=== PATIENT | male | born 1935 | race Caucasian/White ===

== ENCOUNTER 2017-11-12 16:58 | Emergency (ER) | payer BC ==
--- NOTE | 2017-11-12 17:07 | PDOC ---
History of Present Illness - General Chief Complaint: Pain Stated Complaint: LEFT KNEE PAIN Time Seen by Provider: 11/12/17 17:02 - History of Present Illness Initial Comments: The patient is an 82M with a history of HLD and HTN who presents for evaluation of knee pain. The patient reports that he was walking from the mailbox to the house when it started to rain so he began to run into the house. While doing so , he felt a 'twinge' in his left knee. He denies falling or twisting his knee. He was able to continue 'running' into the house. He denies previous injury or surgery to the knee. He denies numbess or tingling of the affected leg. He reports keeping the leg mostly extended helps to alleviate the pain and flexing the knee past 90 degrees makes the pain worse. The patient and his are concerned because they are moving to [place] in 1 month and are in the process of packing. He does not want to lose mobility. 11/12/17 17:25 Past History - Past Medical History Allergies/Adverse Reactions: Allergies Allergy/AdvReac Type Severity Reaction Status Date / Time No Known Allergies Allergy Verified 11/12/17 17:11 Home Medications: Ambulatory Orders Aspirin Coated [Ecotrin -] 81 mg PO DAILY 07/14/14 Atorvastatin Ca [Lipitor -] 10 mg PO HS 07/14/14 Losartan Potassium 25 mg PO DAILY 07/14/14 Metoprolol Succinate [Toprol Xl -] 25 mg PO DAILY 07/14/14 Multivitamins [Tab-A-Vit -] 1 tab PO DAILY 07/14/14 [place]-3 Acid Ethyl Esters [Lovaza -] 2,000 mg PO BID 07/14/14 Cardiac Disorders: Yes (CAD) HTN: Yes Hypercholesterolemia: Yes - Surgical History Cardiac Surgery: Yes (CARDIAC STENTS) - Suicide/Smoking/Psychosocial Hx Smoking History: Never smoked Hx Alcohol Use: No Review of Systems - Review of Systems Comments:: GENERAL/CONSTITUTIONAL: No fever or chills. No weakness HEAD, EYES, EARS, NOSE AND THROAT: No change in vision. No ear pain or discharge. No sore throat CARDIOVASCULAR: No chest pain or shortness of breath RESPIRATORY: No cough, wheezing, or hemoptysis GASTROINTESTINAL: No nausea, vomiting, diarrhea or constipation GENITOURINARY: No dysuria, frequency, or change in urination MUSCULOSKELETAL: per HPI SKIN: No rash NEUROLOGIC: No headache, vertigo, loss of consciousness, or change in strength/ sensation ENDOCRINE: No increased thirst. No abnormal weight change HEMATOLOGIC/LYMPHATIC: No anemia, easy bleeding, or history of blood clots ALLERGIC/IMMUNOLOGIC: No hives or skin allergy 11/12/17 17:48 *Physical Exam - Physical Exam Comments: GENERAL: Awake, alert, and fully oriented, in no acute distress HEAD: No signs of trauma, normocephalic, atraumatic EYES: PERRL, EOMI, sclera anicteric, conjunctiva clear ENT: Hearing grossly normal, nares patent, oropharynx clear without exudates. Moist mucosa NECK: Normal ROM, supple LUNGS: No distress, speaks full sentences HEART: Regular rate and rhythm, peripheral pulses normal and equal bilaterally NEUROLOGICAL: Cranial nerves II through XII grossly intact. Normal speech, normal gait, no focal sensorimotor deficits SKIN: Warm, Dry, normal turgor, no rashes or lesions noted LLE Inspection: No erythema or ecchymosis. No tenderness, no obvious abnormalities, no open wounds. Compartments soft and compressible, pain within proportion, no pain to passive stretch, some knee pain to passive flexion past 90 degrees Knee stable to anterior/posterior drawer and varus/valgus stress Sensation: SPLT DP, SP, Tib, Isaías, Saph Motor: 5/5 EHL, 5/5 FHL, 5/5 TA, 5/5GS, 5/5 Quad, 5/5 Ham Vascular: 2+ DP/PT, all toes BCR <2 sec 11/12/17 17:48 Medical Decision Making - Medical Decision Making The patient is an 82M with a history of HLD and HTN who presents for evaluation of knee pain after feeling a twinge while running a short distance. ED Course Patient evaluated and joint is without laxity, and no bony tenderness. Fracture/ dislocation not likely. Ibuprofen for pain Will wrap knee with BECKA Dispo: Discharge home with PCP follow up 11/12/17 17:52 *DC/Admit/Observation/Transfer Diagnosis at time of Disposition: Left knee pain Qualifiers: Chronicity: unspecified Qualified Code(s): M25.562 - Pain in left knee - Discharge Dispostion Disposition: HOME Condition at time of disposition: Stable Decision to Admit order: No - Referrals - Patient Instructions Printed Discharge Instructions: DI for Knee Pain Additional Instructions: You were seen today for leg pain. You may take the Tylenol up to 975mg four times a day as needed for pain. You may also take up to 800mg of Ibuprofen, three times a day, as needed for pain. Please also refer to the information handouts provided at discharge. Follow up with your primary care provider as scheduled. Return to the Emergency Department if your symptoms worsen or you have any new concerning symptoms. - Post Discharge Activity
[2017-11-12 17:22] VITALS: BP 143/60; PULSE 61; TEMP 98.5; BMI 23.5
--- NOTE | 2017-11-12 17:40 | PDOC ---
Attending Attestation - Resident Resident Name: Bob Leos - ED Attending Attestation I have performed the following: I have examined & evaluated the patient, The case was reviewed & discussed with the resident, I agree w/resident's findings & plan, Exceptions are as noted - HPI HPI: 11/12/17 17:35 82y M hx of htn, hl, presents with left knee pain, started when he started to run when it started raining. No falls, or other injrues. Pt notes he has been having an occasional twinge in his knee the past 7-10 days that lasts for seconds then resolves, but does not remember any acute event that caused it. Pt currently notes pain only with certain movements of his knee. Deneis any numbness/tingling/weakness, denies any hip pain, ankle pain. No prior problms with his knees. Ortho: Abad MS[facility] exam: LLE: n ofocal bony tenderness, able to ROM his knee b/l. o ligametnous laxity, + pain with medial rotation of his LE suspect soft tissue injury n osigns of fx will defer imaging supportive care at home and pmd/ortho fu as outpatinet - Physicial Exam PE: 11/20/17 11:16 see above - Medical Decision Making 11/20/17 11:16 see above
[2017-11-12] MEDS ORDERED: IBUPROFEN 400 MG TABLET (FP) PO ONE ×2 (17:58→17:59)
== END 2017-11-12 18:12 | disposition home or self-care (01) ==
LOC: FER 16:58
DX: M25.562 Pain in left knee (principal); X58.XXXA Exposure to other specified factors, initial encounter; Y93.89 Activity, other specified; Y92.9 Unspecified place or not applicable; I10 Essential (primary) hypertension; E78.5 Hyperlipidemia, unspecified; I25.10 Atherosclerotic heart disease of native coronary artery without angina pectoris
CPT/HCPCS: 99281-25